=== PATIENT | male | born 1995 | race Caucasian/White ===

== ENCOUNTER 2021-10-14 18:44 | Emergency (ER) | payer BC, MEDICAID ==
[2021-10-14] MEDS ORDERED: Diphtheria,Pertussis(Acell),Tetanus Vaccine 0.5 ML Syringe IM ONE (18:46)
[2021-10-14] MEDS ORDERED: Bacitracin/Neomycin/Polymyxin B Oint 0.9 GM U/D Packet TOP ONE (19:24)
--- NOTE | 2021-10-14 19:34 | EDM.PDOC ---
ED HPI GENERAL MEDICAL PROBLEM - General Chief Complaint: General Stated Complaint: Head Injury Time Seen by Provider: 10/14/21 18:50 Source of Information: Reports: Patient History Limitations: Reports: No Limitations - History of Present Illness INITIAL COMMENTS - FREE TEXT/NARRATIVE: Mayra is a 26 year old male who presents to ER with complaints of head trauma and laceration to forehead. 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 No loss of consciousness. States feels "whoozy". No double or blurred vision. Did feel mildly nauseated after it happened. No vomiting. Does have pain to the forehead, mild headache. No bleeding from his nares or ears. GCS 15 Onset: Today, Sudden Duration: Minutes:, Constant Location: Reports: Head Quality: Reports: Ache Severity: Mild Associated Symptoms: Reports: Headaches. Denies: Confusion, Chest Pain, Cough, Fever/Chills, Loss of Appetite, Nausea/Vomiting, Shortness of Breath, Syncope r forehead Pain Score (Numeric/FACES): 4 - Related Data Allergies Allergy/AdvReac Type Severity Reaction Status Date / Time morphine Allergy Hives Verified 10/14/21 18:51 Home Meds: Home Meds PARoxetine HCL [Paxil] 30 mg PO DAILY 10/14/21 [History] Past Medical History - Past Health History Medical/Surgical History: Denies Medical/Surgical History Social & Family History - Family History Family Medical History: No Pertinent Family History - Tobacco Use Tobacco Use Status *Q: Never Tobacco User Second Hand Smoke Exposure: No - Caffeine Use Caffeine Use: Reports: None - Recreational Drug Use Recreational Drug Use: No ED ROS GENERAL - Review of Systems Review Of Systems: See Below Constitutional: Denies: Fever, Chills, Malaise, Weakness, Decreased Appetite HEENT: Denies: Ear Discharge, Ear Pain, Eye Discharge, Eye Pain, Nosebleed, Vision Change Respiratory: Denies: Shortness of Breath Cardiovascular: Reports: Lightheadedness. Denies: Chest Pain Endocrine: Denies: Fatigue GI/Abdominal: Reports: Nausea. Denies: Abdominal Pain, Vomiting : Reports: No Symptoms Musculoskeletal: Denies: Neck Pain Skin: Reports: Wound Neurological: Reports: Headache. Denies: Confusion, Dizziness, Syncope, Trouble Speaking, Difficulty Walking ED EXAM, GENERAL - Physical Exam Exam: See Below Exam Limited By: No Limitations General Appearance: Alert, WD/WN, No Apparent Distress Eye Exam: Bilateral Eye: EOMI, PERRL Ears: Normal External Exam, Normal TMs Nose: Normal Inspection, Normal Mucosa, No Blood Throat/Mouth: Normal Inspection, Normal Oropharynx Head: Normocephalic Neck: Normal Inspection, Supple, Non-Tender Respiratory/Chest: No Respiratory Distress, Lungs Clear, Normal Breath Sounds Cardiovascular: Regular Rate, Rhythm GI/Abdominal: Normal Bowel Sounds, Soft, Non-Tender Extremities: Normal Inspection, Normal Range of Motion, No Pedal Edema Neurological: Alert, Oriented, CN II-XII Intact, Normal Cognition, Normal Gait, Normal Reflexes, No Motor/Sensory Deficits Skin Exam: Warm, Dry, Wound/Incision ED GENERAL MEDICAL PROCEDURES - Laceration/Wound Repair Right Forehead Lac/wound length in cm: 2.5 Appearance: Subcutaneous, Linear Anesthetic Type: Local Local Anesthesia - Lidocaine (Xylocaine): 1% Plain Local Anesthetic Volume: 3cc Skin Prep: Other (saf clesherif) Exploration/Debridement/Repair: Wound Explored, Explored to Base Closed with: Sutures # of Sutures: 5 Suture Type: Nylon, Interrupted, Simple Suture Size: 6-0 # of Sutures: 5 Sterile Dressing Applied: Provider Tetanus Status Addressed: Yes Complications: No Course - Vital Signs Last Recorded V/S: Last Vital Signs Temp 97.3 F 10/14/21 18:46 Pulse 80 10/14/21 18:46 Resp 18 10/14/21 18:46 BP 145/90 H 10/14/21 18:46 Pulse Ox 98 10/14/21 18:46 - Orders/Labs/Meds Orders: Active Orders 24 hr Category Date Time Status Vaccine to be Administered/Admin Charge [RC] ASDIRECTED Care 10/14/21 18:46 Active Head wo Cont [CT] Stat Exams 10/14/21 18:46 Ordered Meds: Medications Discontinued Medications Generic Name Dose Route Start Last Admin Trade Name Freq PRN Reason Stop Dose Admin Diphtheria/Tetanus/Acell Pertussis 0.5 ml 10/14/21 18:46 10/14/21 19:06 Diphtheria,Pertussis(Acell),Tetanus Vaccine 0.5 Ml Syringe IM 10/14/21 18:47 0.5 ml .ONCE ONE Administration Lidocaine HCl 10 ml 10/14/21 18:56 10/14/21 19:05 Lidocaine 1% 5 Ml Sdv INJECT 10/14/21 18:57 10 ml ONETIME ONE Administration Neomycin/Polymyxin/Bacitracin 1 each 10/14/21 19:24 Bacitracin/Neomycin/Polymyxin B Oint 0.9 Gm U/D Packet TOP 10/14/21 19:25 ONETIME ONE - Re-Assessments/Exams Free Text/Narrative Re-Assessment/Exam: 10/14/21 20:05 CT of the head is negative. Discharge instructions discussed with patient. Departure - Departure Time of Disposition: 20:05 Disposition: Home, Self-Care 01 Condition: Good Clinical Impression: Closed head injury without loss of consciousness, Laceration - Discharge Information *PRESCRIPTION DRUG MONITORING PROGRAM REVIEWED*: No *COPY OF PRESCRIPTION DRUG MONITORING REPORT IN PATIENT WILMER: No Instructions: Laceration Care, Adult, Head Injury, Adult Forms: ED Department Discharge Additional Instructions: 1. Keep wound clean and dry 2. Triple antibiotic ointment (neosporin) to area daily for 3 days 3. Keep covered when outside and exposed 4. Sutures out in 5 days 5. Follow up for increased redness, drainage, odor or pain. 6. Tylenol for headache 7. Call for any questions or concerns. Sepsis Event Note (ED) - Evaluation Sepsis Screening Result: No Definite Risk - Focused Exam Vital Signs: Vital Signs Temp Pulse Resp BP Pulse Ox 10/14/21 18:46 97.3 F 80 18 145/90 H 98 - My Orders Last 24 Hours: My Active Orders 10/14/21 18:46 Vaccine to be Administered/Admin Charge [RC] ASDIRECTED Head wo Cont [CT] Stat - Assessment/Plan Last 24 Hours: My Active Orders 10/14/21 18:46 Vaccine to be Administered/Admin Charge [RC] ASDIRECTED Head wo Cont [CT] Stat
== END 2021-10-14 20:30 | disposition home or self-care (01) ==
LOC: CC.ED 18:44
DX: S01.81XA Laceration without foreign body of other part of head, initial encounter (principal); Z88.5 Allergy status to narcotic agent; Z23 Encounter for immunization; W22.09XA Striking against other stationary object, initial encounter
CPT/HCPCS: 12011; 70450; 90471; 90715; 99283-25

== ENCOUNTER 2021-11-14 18:09 | Emergency (ER) | payer SELFPAY ==
--- NOTE | 2021-11-14 18:44 | EDM.PDOC ---
ED HPI GENERAL MEDICAL PROBLEM - General Chief Complaint: General Stated Complaint: "slammed hand in car door" Time Seen by Provider: 11/14/21 18:27 Source of Information: Reports: Patient, RN History Limitations: Reports: No Limitations - History of Present Illness Onset: Today, Sudden Location: Reports: Upper Extremity, Right Quality: Reports: Ache Severity: Moderate Worsens with: Reports: Movement Context: Reports: Trauma Associated Symptoms: Reports: No Other Symptoms Treatments WOODWORKER: Reports: Other (see below) (none) Right Hand Pain Score (Numeric/FACES): 5 - Related Data Allergies Allergy/AdvReac Type Severity Reaction Status Date / Time morphine Allergy Hives Verified 11/14/21 18:13 Home Meds: Home Meds PARoxetine HCL [Paxil] 30 mg PO DAILY 10/14/21 [History] Naproxen 500 mg PO BID 11/14/21 [History] Temazepam 7.5 mg PO BEDTIME PRN 11/14/21 [History] Past Medical History - Past Health History Medical/Surgical History: Denies Medical/Surgical History Psychiatric History: Reports: Anxiety, Depression, Other (See Below) Other Psychiatric History: insomnia - Past Surgical History Musculoskeletal Surgical History: Reports: Other (See Below) Other Musculoskeletal Surgeries/Procedures:: ACL surgery Social & Family History - Family History Family Medical History: No Pertinent Family History - Tobacco Use Tobacco Use Status *Q: Current Every Day Tobacco User Years of Tobacco use: 3 Packs/Tins Daily: 0.8 - Caffeine Use Caffeine Use: Reports: Coffee, Soda - Recreational Drug Use Recreational Drug Use: No ED ROS GENERAL - Review of Systems Review Of Systems: Comprehensive ROS is negative, except as noted in HPI. ED EXAM, GENERAL - Physical Exam Exam: See Below Exam Limited By: No Limitations General Appearance: Alert, No Apparent Distress Respiratory/Chest: No Respiratory Distress, Lungs Clear, Normal Breath Sounds Cardiovascular: Normal Peripheral Pulses, Regular Rate, Rhythm Peripheral Pulses: 2+: Radial (R) Extremities: Normal Range of Motion, Normal Capillary Refill Neurological: Alert, Oriented, No Motor/Sensory Deficits Skin Exam: Warm, Dry, Normal Color, Wound/Incision (1/2 cm abrasion dorsum right hand, no active bleeding) Course - Vital Signs Text/Narrative:: Xray reveals no fracture. Does not want ketorolac, wants to take naproxen at home. Ice pack, Tylenol, Balta wrap in ER. Last Recorded V/S: Last Vital Signs Temp 97.3 F 11/14/21 18:09 Pulse 83 11/14/21 18:09 Resp 18 11/14/21 18:09 BP 131/82 11/14/21 18:09 Pulse Ox 96 11/14/21 18:09 - Orders/Labs/Meds Orders: Active Orders 24 hr Category Date Time Status Hand Comp Min 3V Rt [CR] Stat Exams 11/14/21 18:22 Ordered - Radiology Interpretation Free Text/Narrative:: no fracture noted Departure - Departure Time of Disposition: 19:10 Disposition: Home, Self-Care 01 Condition: Good Clinical Impression: Contusion of right hand - Discharge Information Instructions: Hand Contusion, [id number]-Optn Additional Instructions: Elevate right hand above level of heart. Ice pack intermittently. Balta wrap, loosen if swelling occurs. Tylenol and Naproxen for pain. Follow up with your Primary Care Provider if condition worsens or does not resolve. Sepsis Event Note (ED) - Evaluation Sepsis Screening Result: No Definite Risk - Focused Exam Vital Signs: Vital Signs Temp Pulse Resp BP Pulse Ox 11/14/21 18:09 97.3 F 83 18 131/82 96 - Problem List & Annotations (1) Contusion of right hand SNOMED Code(s): 2575217 Code(s): S60.221A - CONTUSION OF RIGHT HAND, INITIAL ENCOUNTER Status: Acute Onset Date: ~11/14/21 Qualifiers: Encounter type: initial encounter Qualified Code(s): S60.221A - Contusion of right hand, initial encounter - My Orders Last 24 Hours: My Active Orders 11/14/21 18:22 Hand Comp Min 3V Rt [CR] Stat - Assessment/Plan Last 24 Hours: My Active Orders 11/14/21 18:22 Hand Comp Min 3V Rt [CR] Stat
[2021-11-14] MEDS ORDERED: Acetaminophen 500 MG Tab PO ONE (18:53)
== END 2021-11-14 19:15 | disposition home or self-care (01) ==
LOC: SUPCPDRO 18:09 → CC.ED 18:09
DX: S60.221A Contusion of right hand, initial encounter (principal); Z72.0 Tobacco use; W22.09XA Striking against other stationary object, initial encounter
CPT/HCPCS: 73130; 99283; A9270